=== PATIENT | female | born 1955 | race Caucasian/White ===

== ENCOUNTER → 2016-11-10 | Outpatient (CLI) | payer OTHER ==
[2014-08-05 13:57] VITALS: BP 140/89
[2016-11-10 10:18] LABS: BASOPHILS # (AUTO) 0.1 X10^3/uL (0.0-0.1); BASOPHILS % (AUTO) 1.1 % (0.2-1.0); EOSINOPHILS # (AUTO) 0.2 x10^3/uL (0.0-0.2); HEMATOCRIT 44.8 % (36.0-47.0); HEMOGLOBIN 15.3 g/dL (12.0-16.0); LYMPHOCYTES # (AUTO) 2.1 X10^3/uL (1.3-2.9); MEAN CORPUSCULAR HEMOGLOBIN 29.5 pg (27.0-34.0); MEAN CORPUSCULAR HGB CONC 34.2 g/dL (33.0-35.0); MEAN CORPUSCULAR VOLUME 86.2 fL (80.0-100.0); MEAN PLATELET VOLUME 9.1 fL (7.4-11.0); MONOCYTES # (AUTO) 0.4 x10^3/uL (0.3-0.8); MONOCYTES % (AUTO) 7.2 % (0.0-13.0); NEUTROPHILS % (AUTO) 51.7 % (42.0-75.0); PLATELET COUNT 281 X10^3/uL (150.0-450.0); WHITE BLOOD COUNT 5.8 X10^3/uL (3.6-10.0)
[2016-11-10 10:29] LABS: ALANINE AMINOTRANSFERASE 29 Units/L (12-78); ALBUMIN 3.6 g/dL (3.4-5.0); ALKALINE PHOSPHATASE 78 Units/L (46-116); ASPARTATE AMINO TRANSFERASE 20 Units/L (15-37); BLOOD UREA NITROGEN 16 mg/dL (7-18); CALCIUM 9.1 mg/dL (8.5-10.1); CARBON DIOXIDE 27.8 mmol/L (21-32); CHLORIDE 107 mmol/L (98-107); CREATININE 1.01 mg/dL (0.55-1.02); SODIUM 141 mmol/L (136-145); TOTAL PROTEIN 7.4 g/dL (6.4-8.2); TSH (3RD GENERATION) 1.443 uIU/mL (0.358-3.74); eGFR BLACK RACES > 60 (>60); eGFR NON BLACK RACES 59 (>60)
== END ==
LOC: LAB 08:50
PROVIDERS: ATTEND Nurse Practitioner Family
DX: Z13.29 Encounter for screening for other suspected endocrine disorder (principal); M67.942 Unspecified disorder of synovium and tendon, left hand; M79.642 Pain in left hand; R03.0 Elevated blood-pressure reading, without diagnosis of hypertension; G56.02 Carpal tunnel syndrome, left upper limb
CPT/HCPCS: 36415; 80053; 82306; 84443; 85025

== ENCOUNTER → 2016-11-29 | Outpatient (CLI) | payer OTHER ==
[2014-08-05 13:57] VITALS: BP 140/89
--- NOTE | 2016-11-29 14:47 | MG ---
HISTORY: 61 year old female with nonspecific breast pain. Comparison: None FINDINGS: Cc and MLO projections of the right and left breast were obtained. Heterogeneous fibroglandular tiss ue is seen to be present. No significant architectural distortion, mass or clustered microcalcificati ons can be observed to suggest malignancy. IMPRESSION: NO RADIOGRAPHIC EVIDENCE OF MALIGNANCY. ACR CATEGORY I - NEGATIVE EXAM. Recommendation: Yearly screening mammogram. Diagnostic CAD was utilized and reviewed. * 0 (ZERO) - ASSESSMENT INCOMPLETE; ADDITIONAL IMAGING IS NEEDED. * 1/1 (ONE) - NEGATIVE. * 2/II (TWO) - BENIGN FINDINGS. * 3/III (THREE) - PROBABLY BENIGN FINDING; SHORT INTERVAL FOLLOW-UP SUGGESTED. * 4/IV (FOUR) - SUSPICIOUS ABNORMALITY; BIOPSY SHOULD BE CONSIDERED. * 5/V - HIGHLY SUSPICIOUS OF MALIGNANCY; BIOPSY SHOULD BE PERFORMED. A NEGATIVE X-RAY REPORT SHOULD NOT DELAY BIOPSY IF A DOMINANT OR CLINICALLY SUSPICIOUS MASS IS PRESENT; 4 TO 8 PERCENT OF CANCERS ARE NOT IDENTIFIED BY X-RAY. A NEGA TIVE REPORT MAY REINFORCE THE CLINICAL IMPRESSION. ADENOSIS AND DENSE BREASTS MAY OBSCURE AN UNDERLY ING NEOPLASM. Reported By:
--- NOTE | 2016-12-01 14:13 | US ---
HISTORY: Nonspecific breast pain Study: Right breast ultrasound Comparison: Mammography performed the same day Technique: Multiple grayscale and color Doppler images of the right breast were obtained. Findings: At 2 o'clock approximately 1 cm from the nipple, there is a horizontally oriented macro lobulated but smoothly marginated and well circumscribed predominantly anechoic cyst with posterior acoustical enh ancement and no internal Doppler flow measuring 4 mm with a small amount of internal debris or septat ion without a suspicious peripheral nodular component. Findings are less likely felt to represent a t iny intramammary lymph node. No suspicious cystic or solid nodules are seen to warrant biopsy. IMPRESSION: No sonographic evidence of malignancy. Reported By:
== END ==
LOC: RAD 12:59
PROVIDERS: ATTEND Nurse Practitioner Family
DX: N63.0 Unspecified lump in unspecified breast (principal); R92.8 Other abnormal and inconclusive findings on diagnostic imaging of breast
CPT/HCPCS: 76642; 77066

== ENCOUNTER → 2017-01-23 | Outpatient (CLI) | payer OTHER ==
[2014-08-05 13:57] VITALS: BP 140/89
[2017-01-23 07:29] LABS: ALANINE AMINOTRANSFERASE 26 Units/L (12-78); ALBUMIN 3.8 g/dL (3.4-5.0); ALKALINE PHOSPHATASE 84 Units/L (46-116); ASPARTATE AMINO TRANSFERASE 19 Units/L (15-37); BLOOD UREA NITROGEN 13 mg/dL (7-18); CALCIUM 8.8 mg/dL (8.5-10.1); CARBON DIOXIDE 28.1 mmol/L (21-32); CHLORIDE 105 mmol/L (98-107); CHOL/HDL RATIO 4.6 (0.0-5.0); CHOLESTEROL 204 mg/dL (0-200); CREATININE 0.97 mg/dL (0.55-1.02); HDL CHOLESTEROL 44 mg/dL (40-60); SODIUM 141 mmol/L (136-145); TOTAL PROTEIN 7.5 g/dL (6.4-8.2); TRIGLYCERIDES 167 mg/dL (0-150); eGFR BLACK RACES > 60 (>60); eGFR NON BLACK RACES > 60 (>60)
== END ==
LOC: LAB 06:53
PROVIDERS: ATTEND Nurse Practitioner Family
DX: Z13.818 Encounter for screening for other digestive system disorders (principal); M67.942 Unspecified disorder of synovium and tendon, left hand; R03.0 Elevated blood-pressure reading, without diagnosis of hypertension
CPT/HCPCS: 36415; 80053; 80061